=== PATIENT | male | born 1960 | race Caucasian/White ===

== ENCOUNTER 2016-08-13 15:53 | Outpatient (CLI) | payer MEDICARE, OTHER ==
--- NOTE | 2016-08-13 17:17 | Diagnostic Imaging Report ---
[facility] [address] [facility] [address] [place], [place]. [address] Report Submission Date: Aug 13, 2016 5:10:38 PM CENTRAL OFFICE REPAIRER SUPERVISOR Patient Study Name: ALLY BENAVIDES Date: Aug 13, 2016 4:03:36 PM CENTRAL OFFICE REPAIRER SUPERVISOR Modality Type: CT\SR Gender: M Description: CT BRAIN W/O CONTRAST : 56 Institution: [facility] Physician: INKHIL CT brain noncontrast Date of study: August 13, 2016 CLINICAL HISTORY: FALL, MENTAL STATUS CHANGES (Hx) / FALL, MENTAL STATUS CHANGES (DICOM Hx) TECHNIQUE: 2.5 mm contiguous axial of the brain, noncontrast. Sagittal and coronal multiplanar reconstructions. FINDINGS: There is no evidence of intracranial mass effect, hemorrhage, or acute infarct. Cerebral atrophy and white matter gliosis are present. Cerebellar atrophy is noted. There is intracranial atherosclerotic vascular calcification. The lateral ventricles are symmetrical and the 4th ventricle is midline without shift. No acute brain parenchymal changes or extra-axial fluid collections are identified. The calvarium is intact. Mucosal thickening is present in the maxillary sinus is more on the right than left. The mastoid air cells are clear IMPRESSION: No acute intracranial process. Chronic atrophy and white matter gliosis Electronically signed on Aug 13, 2016 5:10:38 PM CENTRAL OFFICE REPAIRER SUPERVISOR by: Rajesh BARRERA
--- NOTE | 2016-08-13 17:19 | Diagnostic Imaging Report ---
[facility] [id number] [facility].[address] [address] Report Submission Date: Aug 13, 2016 5:16:51 PM RISK ASSESSOR Patient Study Name: ALLY BENAVIDES Date: Aug 13, 2016 4:10:56 PM RISK ASSESSOR Modality Type: CR Gender: M Description: SPINE : 56 Institution: [facility] Physician: NIKHIL Lumbar spine 3 views Clinical history pain Technique AP lateral cone down Findings: Spurs arise from multiple levels. Disc height are well preserved. There is lower lumbar spine facet degenerative arthritis. No fracture or spondylolysis is seen. Aortoiliac vascular calcification is present. The sacrum appears intact Impression: Lumbar spondylosis No acute pathology Electronically signed on Aug 13, 2016 5:16:51 PM RISK ASSESSOR by: Rajesh BARRERA
== END 2016-08-13 15:55 ==
LOC: RAD 15:53
PROVIDERS: ATTEND Family Medicine
DX: M54.9 Dorsalgia, unspecified (principal); R41.82 Altered mental status, unspecified; Z91.81 History of falling; M47.896 Other spondylosis, lumbar region
CPT/HCPCS: 70450; 72100